=== PATIENT | male | born 1950 | race Caucasian/White ===

== ENCOUNTER 2017-03-13 08:40 | Emergency (ER) | payer OTHER ==
[2017-03-13 08:46] VITALS: RESP 16
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
--- NOTE | 2017-03-13 09:02 | CPEKG ---
Heart Rate: 64 RR Interval: 938 P-R Interval: 148 QRSD Interval: 90 QT Interval: 404 QTC Interval: 417 P Duncan: 58 QRS Duncan: -33 T Wave Duncan: 51 EKG Severity - BORDERLINE ECG - EKG Impression: SINUS RHYTHM EKG Impression: PROBABLE LEFT ATRIAL ABNORMALITY EKG Impression: LEFT AXIS DEVIATION Electronically Signed By: Taryn Zavala 13-Mar-2017 15:25:05
[2017-03-13 12:43] VITALS: BP 117/61; PULSE 60; TEMP 98.1; O2SAT 92
== END 2017-03-13 12:42 | disposition home or self-care (01) ==
DX: R07.89 Other chest pain (principal); F17.200 Nicotine dependence, unspecified, uncomplicated

== ENCOUNTER → 2017-03-22 | Outpatient (CLI) | payer OTHER | LOC: FIMAGING 12:43 | PROVIDERS: ATTEND Nurse Practitioner Family | DX: I70.0 Atherosclerosis of aorta (principal) ==

== ENCOUNTER 2017-07-03 14:43 | Emergency (ER) | payer OTHER ==
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
[2017-07-03 14:55] VITALS: RESP 16; TEMP 98.1
[2017-07-03] MEDS ORDERED: LET GEL TOPICAL 1 EA SYR TP ONE (15:09)
[2017-07-03 15:23] LABS: % IMMATURE GRANULYOCYTES 0.3 % (0.0-1.1); ABSOLUTE IMMATURE GRANULOCYTES 0.02 10^3/uL (0.00-0.10); ADD DIFF? NO; ADD MORPH? NO; ADD SCAN? NO; ATYPICAL LYMPHOCYTE FLAG 20 (0-99); FRAGMENT RBC FLAG 0 (0-99); HEMATOCRIT 36.5 % (40.0-51.0); HEMOGLOBIN 12.4 g/dL (13.7-17.5); LEFT SHIFT FLG 0 (0-99); LIPEMIA HEMOLYSIS FLAG 90 (0-99); MEAN CELL HEMOGLOBIN 33.4 pg (27.9-34.1); MEAN CELL VOLUME 98.4 fL (81.5-99.8); MEAN PLATELET VOLUME 8.8 fL (8.7-11.7); PLATELET CLUMPS FLAG 0 (0-99); PLATELET COUNT 226 10^3/uL (150-400); RED BLOOD CELL COUNT 3.71 10^6/uL (4.40-6.38); RED CELL DISTRIBUTION WIDTH 13.2 % (11.5-15.2)
[2017-07-03 15:33] LABS: ANION GAP 11 mEq/L (8-16); CALCIUM 9.2 mg/dL (8.5-10.4); CARBON DIOXIDE 21 mEq/l (22-31); CHLORIDE 98 mEq/L (97-110); CREATININE 0.8 mg/dL (0.7-1.3); ETHANOL SERUM < 10 mg/dL (0-10); GLOMERULAR FILTRATION RATE > 60; GLUCOSE 99 mg/dL (70-100); SODIUM 130 mEq/L (134-144)
[2017-07-03 15:44] LABS: TROPONIN I < 0.012 ng/mL (0.000-0.034)
--- NOTE | 2017-07-03 15:52 | CPEKG ---
Heart Rate: 65 RR Interval: 923 P-R Interval: 168 QRSD Interval: 90 QT Interval: 424 QTC Interval: 441 P Newberry: 57 QRS Newberry: -46 T Wave Newberry: 43 EKG Severity - ABNORMAL ECG - EKG Impression: SINUS RHYTHM EKG Impression: PROBABLE LEFT ATRIAL ABNORMALITY EKG Impression: LEFT ANTERIOR FASCICULAR BLOCK Electronically Signed By: Taryn Zavala 03-Jul-2017 22:32:01
[2017-07-03] MEDS ORDERED: IOPAMIDOL (ISOVUE 370) 100 ML BTL IV ONE (16:56)
[2017-07-03 19:56] VITALS: BP 143/79; PULSE 84; O2SAT 94
== END 2017-07-03 19:57 | disposition home or self-care (01) ==
LOC: EDUNIT#
DX: G40.909 Epilepsy, unspecified, not intractable, without status epilepticus (principal); F17.200 Nicotine dependence, unspecified, uncomplicated; Z85.820 Personal history of malignant melanoma of skin
CPT/HCPCS: 70450; 71275; 93005; 99285; Q9967; G0480

== ENCOUNTER 2018-01-06 11:24 | Emergency (ER) | payer OTHER ==
[2018-01-06 11:37] VITALS: BP 137/79; PULSE 57; RESP 16; TEMP 97.7; O2SAT 96
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
== END 2018-01-06 12:30 | disposition home or self-care (01) ==
DX: M79.2 Neuralgia and neuritis, unspecified (principal); F17.200 Nicotine dependence, unspecified, uncomplicated